=== PATIENT | male | born 1950 | race Caucasian/White ===

== ENCOUNTER 2016-05-08 10:02 | Day surgery (SDC) | payer OTHER ==
[~2016-05-08] VITALS: Ht 185.4 cm; Wt 143.3 kg
[~2016-05-08 10:02] MED LIST: AMOXICILLIN875 MG PO; COREG12.5 M1 PO; COZAAR100 MG PO; DELZICOL400 M1 PO; FISH OIL300 MG PO; FLEXERIL10 MG PO; LANTUS 10100 UNITS/ SC; MOTRIN600 MG PO; MULTI-DAY VITA1 EACH PO; NEURONTIN100 MG PO; PERCOCET 5/31 TABLET PO; PREVACID30 MG PO; PROSCAR5 MG PO; SINGULAIR10 MG PO; TRADJENTA5 MG PO
[2016-05-08 10:33] LABS: POINT-OF-CARE METER ID UU14174212
[2016-05-08 10:41] VITALS: BP 123/64
[2016-05-08 16:41] LABS: POINT-OF-CARE METER ID UU13113675
[2016-05-08 17:51] VITALS: BP 124/73; BP 154/73
[2016-05-08 19:32] VITALS: BP 155/79
[2016-05-08 23:37] VITALS: BP 132/69
[2016-05-09 03:48] VITALS: BP 110/53
[2016-05-09 07:18] LABS: POINT-OF-CARE METER ID UU14149397
[2016-05-09 08:45] VITALS: BP 136/69
[2016-05-09 12:07] VITALS: BP 155/93
[2016-05-09 12:14] LABS: POINT-OF-CARE METER ID UU14188577
== END 2016-05-09 15:56 | disposition home or self-care (01) ==
LOC: SDC 10:02 → 2SOUTH 10:12 → SDC 14:27 → EDSTATUS 14:38 → SDC 14:39 → 2SOUTH 16:22 → 3EAST 17:48
PROVIDERS: Neurological Surgery
DX: M47.892 Other spondylosis, cervical region (principal); M54.12 Radiculopathy, cervical region; G95.20 Unspecified cord compression; I10 Essential (primary) hypertension; J45.909 Unspecified asthma, uncomplicated; Z79.51 Long term (current) use of inhaled steroids
CPT/HCPCS: 72040; 76000; 82948; 94799; G0378; J0131; J0330; J0690; J1100; J2405; J2710; J3010; J3480